=== PATIENT | female | born 1950 | race Caucasian/White ===

== ENCOUNTER 2021-11-12 04:19 | Outpatient (CLI) | payer MEDICARE, BC, SELFPAY ==
[2021-11-12 08:26] LABS: Abs Immature Grans 0.03 10^3/uL (0.0-0.06); Absolute Basophil Count 0.04 10^3/uL (0.0-0.2); Absolute Eosinophil Count 0.15 10^3/uL (0.0-0.7); Absolute Lymphocyte Count 2.38 10^3/uL (1.2-3.4); Absolute Monocyte Count 0.35 10^3/uL (0.1-0.8); Absolute Neutrophil Count 3.34 10^3/uL (1.2-6.7); Basophils % 0.6; Eosinophils % 2.4; HCT 35.5 % (36.0-46.0); HGB 11.9 g/dL (11.2-15.7); Immature Grans % 0.5; Lymphocytes % 37.8; MCH 32.6 pg (27.0-33.0); MCHC 33.5 % (32.0-36.0); MCV 97 fL (80-95); MPV 8.7 fL (8.0-11.0); Monocytes % 5.6; Neutrophils % 53.1; Platelet Count 527 10^3/uL (130-400); RBC 3.65 10^6/uL (3.93-5.22); RDW 18.8 % (11.7-14.6); RDW-SD 66.6 fL; WBC 6.29 10^3/uL (4.4-10.8)
== END 2021-11-12 04:20 | disposition home or self-care (01) ==
PROVIDERS: PCP Family Medicine; Visit Provider Internal Medicine Hematology & Oncology
DX: D47.3 Essential (hemorrhagic) thrombocythemia (principal)
CPT/HCPCS: 36415; 85025

== ENCOUNTER 2022-04-08 02:49 | Outpatient (CLI) | payer MEDICARE, BC, SELFPAY ==
[2022-04-08 12:17] LABS: Abs Immature Grans 0.03 10^3/uL (0.0-0.06); Absolute Basophil Count 0.04 10^3/uL (0.0-0.2); Absolute Eosinophil Count 0.05 10^3/uL (0.0-0.7); Absolute Lymphocyte Count 2.36 10^3/uL (1.2-3.4); Absolute Monocyte Count 0.39 10^3/uL (0.1-0.8); Absolute Neutrophil Count 3.85 10^3/uL (1.2-6.7); Basophils % 0.6; Eosinophils % 0.7; HCT 37.1 % (36.0-46.0); HGB 12.3 g/dL (11.2-15.7); Immature Grans % 0.4; Lymphocytes % 35.1; MCH 35.4 pg (27.0-33.0); MCHC 33.2 % (32.0-36.0); MCV 107 fL (80-95); MPV 8.7 fL (8.0-11.0); Monocytes % 5.8; Neutrophils % 57.4; Platelet Count 481 10^3/uL (130-400); RBC 3.47 10^6/uL (3.93-5.22); RDW 13.1 % (11.7-14.6); RDW-SD 50.5 fL; WBC 6.72 10^3/uL (4.4-10.8)
[2022-04-08 12:37] LABS: ALT 32 U/L (14-59); AST 17 U/L (15-37); Albumin 3.8 g/dL (3.4-5.0); Alkaline Phosphatase 100 U/L (46-116); Anion Gap 9.3 mmol/L (3-11); BUN 29 mg/dL (7-18); Bilirubin, Total 0.2 mg/dL (0.2-1.0); CO2 27.7 mmol/L (21.0-32.0); CREATININE 0.9 mg/dL (0.55-1.02); Calcium 9.4 mg/dL (8.5-10.1); Chloride 105 mmol/L (98-107); Glucose 101 mg/dL (74-106); Potassium 3.6 mmol/L (3.5-5.1); Sodium 142 mmol/L (136-145); Total Protein 6.9 g/dL (6.4-8.2)
== END 2022-04-08 02:50 | disposition home or self-care (01) ==
LOC: LBO 02:49
PROVIDERS: PCP Family Medicine; Visit Provider Internal Medicine Hematology & Oncology
DX: D47.3 Essential (hemorrhagic) thrombocythemia (principal)
CPT/HCPCS: 36415; 80053; 85025

== ENCOUNTER 2022-06-14 04:31 | Outpatient (CLI) | payer MEDICARE, BC, SELFPAY ==
[2022-06-14 09:16] LABS: Abs Immature Grans 0.03 10^3/uL (0.0-0.06); Absolute Basophil Count 0.03 10^3/uL (0.0-0.2); Absolute Eosinophil Count 0.09 10^3/uL (0.0-0.7); Absolute Neutrophil Count 3.54 10^3/uL (1.2-6.7); Basophils % 0.5; Eosinophils % 1.4; HGB 12.6 g/dL (11.2-15.7); Immature Grans % 0.5; MCH 36.7 pg (27.0-33.0); MCHC 34.1 % (32.0-36.0); MCV 108 fL (80-95); MPV 8.5 fL (8.0-11.0); Monocytes % 6.4; Neutrophils % 56.2; Platelet Count 540 10^3/uL (130-400); RBC 3.43 10^6/uL (3.93-5.22); RDW 12.7 % (11.7-14.6); RDW-SD 49.1 fL; WBC 6.29 10^3/uL (4.4-10.8)
[2022-06-14 09:31] LABS: Macrocytosis 1+
[2022-06-14 09:33] LABS: ALT 31 U/L (14-59); AST 21 U/L (15-37); Albumin 3.8 g/dL (3.4-5.0); Alkaline Phosphatase 97 U/L (46-116); Anion Gap 6.3 mmol/L (3-11); BUN 31 mg/dL (7-18); Bilirubin, Total 0.4 mg/dL (0.2-1.0); CO2 29.7 mmol/L (21.0-32.0); CREATININE 0.9 mg/dL (0.55-1.02); Calcium 9.3 mg/dL (8.5-10.1); Chloride 103 mmol/L (98-107); Glucose 97 mg/dL (74-106); Potassium 3.6 mmol/L (3.5-5.1); Sodium 139 mmol/L (136-145); Total Protein 7.3 g/dL (6.4-8.2)
== END 2022-06-14 04:32 | disposition home or self-care (01) ==
LOC: LBO 04:31
PROVIDERS: PCP Family Medicine; Visit Provider Internal Medicine Hematology & Oncology
DX: D47.3 Essential (hemorrhagic) thrombocythemia (principal)
CPT/HCPCS: 36415; 80053; 85025

== ENCOUNTER 2022-07-29 01:08 | Outpatient (CLI) | payer MEDICARE, BC, SELFPAY ==
[2022-07-29 08:59] LABS: Abs Immature Grans 0.03 10^3/uL (0.0-0.06); Absolute Basophil Count 0.04 10^3/uL (0.0-0.2); Absolute Eosinophil Count 0.09 10^3/uL (0.0-0.7); Absolute Lymphocyte Count 2.25 10^3/uL (1.2-3.4); Absolute Monocyte Count 0.43 10^3/uL (0.1-0.8); Absolute Neutrophil Count 3.68 10^3/uL (1.2-6.7); Basophils % 0.6; Eosinophils % 1.4; HCT 37.7 % (36.0-46.0); HGB 12.8 g/dL (11.2-15.7); Immature Grans % 0.5; Lymphocytes % 34.5; MCH 36.4 pg (27.0-33.0); MCV 107 fL (80-95); MPV 8.9 fL (8.0-11.0); Monocytes % 6.6; Neutrophils % 56.4; Platelet Count 390 10^3/uL (130-400); RBC 3.52 10^6/uL (3.93-5.22); RDW 12.1 % (11.7-14.6); RDW-SD 47.2 fL; WBC 6.52 10^3/uL (4.4-10.8)
[2022-07-29 09:15] LABS: ALT 26 U/L (14-59); AST 18 U/L (15-37); Albumin 3.6 g/dL (3.4-5.0); Alkaline Phosphatase 95 U/L (46-116); Anion Gap 7.1 mmol/L (3-11); BUN 28 mg/dL (7-18); Bilirubin, Total 0.4 mg/dL (0.2-1.0); CO2 30.9 mmol/L (21.0-32.0); CREATININE 0.9 mg/dL (0.55-1.02); Calcium 9.2 mg/dL (8.5-10.1); Chloride 104 mmol/L (98-107); Glucose 89 mg/dL (74-106); Potassium 3.6 mmol/L (3.5-5.1); Sodium 142 mmol/L (136-145)
== END 2022-07-29 01:09 | disposition home or self-care (01) ==
LOC: LBO 01:08
PROVIDERS: Nurse Practitioner Family; PCP Family Medicine; Visit Provider Internal Medicine Hematology & Oncology
DX: D47.3 Essential (hemorrhagic) thrombocythemia (principal)
CPT/HCPCS: 80053; 85025

== ENCOUNTER 2023-01-27 01:48 | Outpatient (CLI) | payer MEDICARE, BC, SELFPAY ==
[2023-01-27 09:08] LABS: HCT 36.5 % (36.0-46.0); HGB 12.7 g/dL (11.2-15.7); MCH 36.8 pg (27.0-33.0); MCHC 34.8 % (32.0-36.0); MCV 106 fL (80-95); MPV 8.9 fL (8.0-11.0); Platelet Count 456 10^3/uL (130-400); RBC 3.45 10^6/uL (3.93-5.22); RDW 12.3 % (11.7-14.6); RDW-SD 47.2 fL; WBC 6.56 10^3/uL (4.4-10.8)
[2023-01-27 09:09] LABS: Abs Immature Grans 0.04 10^3/uL (0.0-0.06); Absolute Basophil Count 0.04 10^3/uL (0.0-0.2); Absolute Lymphocyte Count 2.15 10^3/uL (1.2-3.4); Absolute Monocyte Count 0.36 10^3/uL (0.1-0.8); Absolute Neutrophil Count 3.87 10^3/uL (1.2-6.7); Basophils % 0.6; Eosinophils % 1.5; Immature Grans % 0.6; Lymphocytes % 32.8; Monocytes % 5.5
== END 2023-01-27 01:49 | disposition home or self-care (01) ==
LOC: LBO 01:48
PROVIDERS: PCP Family Medicine; Visit Provider Nurse Practitioner Family
DX: D47.3 Essential (hemorrhagic) thrombocythemia (principal)
CPT/HCPCS: 36415; 85025

== ENCOUNTER 2023-07-28 00:48 | Outpatient (CLI) | payer MEDICARE, BC, SELFPAY ==
[2023-07-28 11:59] LABS: Abs Immature Grans 0.08 10^3/uL (0.0-0.06); Absolute Basophil Count 0.04 10^3/uL (0.0-0.2); Absolute Eosinophil Count 0.08 10^3/uL (0.0-0.7); Absolute Lymphocyte Count 2.35 10^3/uL (1.2-3.4); Absolute Monocyte Count 0.43 10^3/uL (0.1-0.8); Absolute Neutrophil Count 5.95 10^3/uL (1.2-6.7); Basophils % 0.4 %; Eosinophils % 0.9 %; HCT 34.6 % (36.0-46.0); HGB 11.7 g/dL (11.2-15.7); Immature Grans % 0.9 %; Lymphocytes % 26.3 %; MCHC 33.8 % (32.0-36.0); MPV 8.7 fL (8.0-11.0); Monocytes % 4.8 %; Neutrophils % 66.7 %; Platelet Count 539 10^3/uL (130-400); RBC 3.16 10^6/uL (3.93-5.22); RDW 12.3 % (11.7-14.6); RDW-SD 49.3 fL; WBC 8.93 10^3/uL (4.4-10.8)
[2023-07-28 12:00] LABS: MCV 110 fL (80-95)
[2023-07-28 12:20] LABS: ALT 35 U/L (14-59); AST 23 U/L (15-37); Albumin 3.8 g/dL (3.4-5.0); Alkaline Phosphatase 111 U/L (46-116); Anion Gap 7.3 mmol/L (3-11); BUN 21 mg/dL (7-18); Bilirubin, Total 0.6 mg/dL (0.2-1.0); CO2 31.7 mmol/L (21.0-32.0); CREATININE 0.8 mg/dL (0.55-1.02); Calcium 9.4 mg/dL (8.5-10.1); Chloride 98 mmol/L (98-107); Estimated GFR 77.27 (mL/min/1.73m2); Glucose 123 mg/dL (74-106); Potassium 3.1 mmol/L (3.5-5.1); Sodium 137 mmol/L (136-145); Total Protein 7.2 g/dL (6.4-8.2)
== END 2023-07-28 00:49 | disposition home or self-care (01) ==
LOC: LBO 00:49
PROVIDERS: PCP Family Medicine; Visit Provider Internal Medicine Hematology & Oncology
DX: D47.3 Essential (hemorrhagic) thrombocythemia (principal)
CPT/HCPCS: 36415; 80053; 85025

== ENCOUNTER 2023-10-27 03:46 | Outpatient (CLI) | payer MEDICARE, BC, SELFPAY ==
[2023-10-27 13:43] LABS: Abs Immature Grans 0.04 10^3/uL (0.0-0.06); Absolute Basophil Count 0.04 10^3/uL (0.0-0.2); Absolute Eosinophil Count 0.09 10^3/uL (0.0-0.7); Absolute Lymphocyte Count 2.07 10^3/uL (1.2-3.4); Absolute Monocyte Count 0.33 10^3/uL (0.1-0.8); Absolute Neutrophil Count 4.49 10^3/uL (1.2-6.7); Basophils % 0.6 %; Eosinophils % 1.3 %; HCT 35.4 % (36.0-46.0); HGB 11.8 g/dL (11.2-15.7); Immature Grans % 0.6 %; Lymphocytes % 29.3 %; MCH 37.5 pg (27.0-33.0); MCHC 33.3 % (32.0-36.0); MPV 9.2 fL (8.0-11.0); Monocytes % 4.7 %; Neutrophils % 63.5 %; Platelet Count 494 10^3/uL (130-400); RBC 3.15 10^6/uL (3.93-5.22); RDW 13.3 % (11.7-14.6); RDW-SD 54.7 fL; WBC 7.06 10^3/uL (4.4-10.8)
[2023-10-27 13:45] LABS: MCV 112 fL (80-95)
[2023-10-27 13:52] LABS: ALT 25 U/L (14-59); AST 17 U/L (15-37); Albumin 3.9 g/dL (3.4-5.0); Alkaline Phosphatase 95 U/L (46-116); Anion Gap 6.9 mmol/L (3-11); BUN 29 mg/dL (7-18); Bilirubin, Total 0.26 mg/dL (0.2-1.0); CO2 29.1 mmol/L (21.0-32.0); Calcium 9.7 mg/dL (8.5-10.1); Chloride 102 mmol/L (98-107); Estimated GFR 59.12 (mL/min/1.73m2); Glucose 102 mg/dL (74-106); Potassium 3.3 mmol/L (3.5-5.1); Sodium 138 mmol/L (136-145); Total Protein 7.1 g/dL (6.4-8.2)
== END 2023-10-27 03:47 | disposition home or self-care (01) ==
LOC: LBO 03:46
PROVIDERS: PCP Family Medicine; Visit Provider Internal Medicine Hematology & Oncology
DX: D47.3 Essential (hemorrhagic) thrombocythemia (principal)
CPT/HCPCS: 80053; 85025

== ENCOUNTER 2024-04-25 04:37 | Outpatient (CLI) | payer MEDICARE, BC, SELFPAY ==
[2024-04-25 08:10] LABS: Abs Immature Grans 0.04 10^3/uL (0.0-0.06); Absolute Basophil Count 0.04 10^3/uL (0.0-0.2); Absolute Lymphocyte Count 1.89 10^3/uL (1.2-3.4); Absolute Neutrophil Count 4.11 10^3/uL (1.2-6.7); Basophils % 0.6 %; Eosinophils % 1.5 %; HCT 36.3 % (36.0-46.0); HGB 12.4 g/dL (11.2-15.7); Immature Grans % 0.6 %; Lymphocytes % 28.7 %; MCH 36.9 pg (27.0-33.0); MCHC 34.2 % (32.0-36.0); MCV 108 fL (80-95); MPV 8.9 fL (8.0-11.0); Monocytes % 6.1 %; Neutrophils % 62.5 %; Platelet Count 499 10^3/uL (130-400); RBC 3.36 10^6/uL (3.93-5.22); RDW 12.8 % (11.7-14.6); RDW-SD 50.6 fL; WBC 6.58 10^3/uL (4.4-10.8)
[2024-04-25 08:25] LABS: ALT 35 U/L (14-59); AST 25 U/L (15-37); Albumin 3.8 g/dL (3.4-5.0); Alkaline Phosphatase 92 U/L (46-116); Anion Gap 7.1 mmol/L (3-11); BUN 35 mg/dL (7-18); Bilirubin, Total 0.5 mg/dL (0.2-1.0); CO2 29.9 mmol/L (21.0-32.0); Calcium 9.3 mg/dL (8.5-10.1); Chloride 106 mmol/L (98-107); Estimated GFR 58.75 (mL/min/1.73m2); Glucose 101 mg/dL (74-106); Potassium 3.7 mmol/L (3.5-5.1); Sodium 143 mmol/L (136-145); Total Protein 7.1 g/dL (6.4-8.2)
== END 2024-04-25 04:38 | disposition home or self-care (01) ==
PROVIDERS: PCP Family Medicine; Visit Provider Internal Medicine Hematology & Oncology
DX: D47.3 Essential (hemorrhagic) thrombocythemia (principal)
CPT/HCPCS: 36415; 80053; 85025

== ENCOUNTER 2024-10-24 04:20 | Outpatient (CLI) | payer MEDICARE, BC, SELFPAY ==
[2024-10-24 09:29] LABS: Abs Immature Grans 0.06 10^3/uL (0.0-0.06); HCT 34.6 % (36.0-46.0); HGB 11.6 g/dL (11.2-15.7); Immature Grans % 1.0 %; MCH 35.5 pg (27.0-33.0); MCHC 33.5 % (32.0-36.0); MCV 106 fL (80-95); MPV 9.5 fL (8.0-11.0); Platelet Count 469 10^3/uL (130-400); RBC 3.27 10^6/uL (3.93-5.22); RDW 12.6 % (11.7-14.6); RDW-SD 49.3 fL; WBC 6.01 10^3/uL (4.4-10.8)
[2024-10-24 09:32] LABS: ALT 35 U/L (14-59); AST 19 U/L (15-37); Albumin 3.4 g/dL (3.4-5.0); Alkaline Phosphatase 93 U/L (46-116); Anion Gap 7.9 mmol/L (3-11); BUN 19 mg/dL (7-18); Bilirubin, Total 0.4 mg/dL (0.2-1.0); CO2 28.1 mmol/L (21.0-32.0); Calcium 9.1 mg/dL (8.5-10.1); Chloride 104 mmol/L (98-107); Estimated GFR 90.14 (mL/min/1.73m2); Glucose 94 mg/dL (74-106); Potassium 3.7 mmol/L (3.5-5.1); Sodium 140 mmol/L (136-145); Total Protein 6.6 g/dL (6.4-8.2)
== END 2024-10-24 04:21 | disposition home or self-care (01) ==
PROVIDERS: PCP Family Medicine; Visit Provider Nurse Practitioner Family
DX: D47.3 Essential (hemorrhagic) thrombocythemia (principal)
CPT/HCPCS: 36415; 80053; 85025